=== PATIENT | female | born 1970 | race Caucasian/White ===

== ENCOUNTER 2016-07-22 23:00 | Emergency (ER) | payer BC, OTHER ==
[~2016-07-22 23:00] MED LIST: ACET500CAP PO; BEN25; DEPO-TESTOS200 MG/M1 IM; ENDOMETRIN100 MG V; ESTRACE1 MG PO; FLUCON1 PO; IMPLANON68 MG SC; KLONO5 PO; MULTIPLE VIT PO; NITROBID2 PO; NYS500UDL PO; PRILO PO; PROAIR HFA INH; PROBIOTIC PO; PVC V; QVAR 80 MCG80 MCG INH; QVAR80 MCG IN; SPIRO50 PO; SYMBICORT 160/41 INH INH; TESTOSTERONE INJ; VITAMIN D31000 UNIT PO; VIVELLE-DOT0.1 MG TOP; WELL100 PO; XOPENEX HFA INH; ZANTAC150 MG PO; ZYRTEC ALLGY10 MG; ZYRTEC ALLGY10 MG PO; [UNRECOGNIZED DRUG - OTHER]; [UNRECOGNIZED DRUG - OTHER]; [UNRECOGNIZED DRUG - OTHER] PO
[2016-07-22 23:08] LABS: BASOPHILS 0.3 %; BASOPHILS ABSOLUTE 0.04 10/3/uL (0.0-0.16); EOSINOPHILS 0.5 %; EOSINOPHILS ABSOLUTE 0.06 10/3/uL (0.0-0.53); ER CBC TAT 0 Hrs 07 Mins; HEMATOCRIT 42.4 % (36.0-48.0); HEMOGLOBIN 14.4 g/dL (12.0-16.0); IMMATURE GRANULOCYTES 0.6 %; IMMATURE GRANULOCYTES ABSOLUTE 0.08 10/3/uL (0.0-0.11); LYMPHOCYTES 20.3 %; LYMPHOCYTES ABSOLUTE 2.62 10/3/uL (0.67-4.30); MEAN CORPUSCULAR HEMOGLOB 30.9 pg (26.0-34.0); MEAN PLATELET VOLUME 8.9 fL (9.2-13.0); MONOCYTES 10.7 %; MONOCYTES ABSOLUTE 1.38 10/3/uL (0.21-1.20); NEUTROPHILS 67.6 %; PLATELET COUNT 339 10/3/uL (150-400); RBC DISTRIBUTION WIDTH 13.2 % (12.0-16.0); RED CELL COUNT 4.66 10/6/uL (4.0-5.6); WHITE BLOOD CELLS 12.9 10/3/uL (4.5-10.5)
[2016-07-22 23:13] LABS: MANUAL DIFF NO %
[2016-07-22 23:14] LABS: INTERNATIONAL NORMAL RATI 0.9 UNITS (-); PARTIAL THROMBO TIME 24.1 SEC (22.5-37.2)
[2016-07-22 23:26] LABS: BUN (BLOOD UREA NITROGEN) 12 MG/DL (6-23); CALCIUM, SERUM 9.3 MG/DL (8.5-10.4); CHEST PAIN PROFILE TAT 0 Hrs 25 Mins; CHLORIDE, SERUM 105 MMOL/L (96-112); CREATININE 0.88 MG/DL (0.55-1.02); GFR AFRICAN AMERICAN 92 ML/MIN (>=60); GFR NON AFRICAN AMERICAN 79 ML/MIN (>=60); GLUCOSE, SERUM 87 MG/DL (60-99); POTASSIUM, SERUM 4.2 MMOL/L (3.5-5.3); SODIUM, SERUM 138 MMOL/L (135-148); TROPONIN I <0.02 NG/ML (<0.05)
[2016-07-22 23:28] LABS: CO2 (CARBON DIOXIDE) 31 MMOL/L (24-34)
[2016-07-23 02:02] LABS: ALBUMIN 4.1 G/DL (3.5-5.0); SGOT(AST) 14 U/L (5-40); SGPT(ALT) 23 U/L (5-65); TOTAL BILIRUBIN 0.3 MG/DL (0-1.2); TOTAL PROTEIN 7.9 G/DL (6.0-8.5); TROPONIN I <0.02 NG/ML (<0.05)
[2016-07-23 02:03] LABS: ALKALINE PHOSPHATASE 123 U/L (45-117); DIRECT BILIRUBIN < 0.1 MG/DL (0.0-0.4); INDIRECT BILIRUBIN(NOT ORDER) 0.2 MG/DL (0.1-0.9)
[2016-08-09] MEDS ORDERED: VIVELLE SY0.1 MG/24 TOP (09:02)
[2016-08-09] MEDS ORDERED: CALTRA600D PO (09:04)
[2016-08-09] MEDS ORDERED: FOLIC PO (09:04)
[2016-08-09] MEDS ORDERED: HIZENTRA SQ (09:06)
[2016-08-09] MEDS ORDERED: XOPEN0.5ML INH (09:07)
[2016-08-09] MEDS ORDERED: XYZAL5 MG PO (09:08)
[2016-08-09] MEDS ORDERED: MTX2.5 PO (09:08)
[2016-08-09] MEDS ORDERED: SINGULAIR1 PO (09:09)
[2016-08-09] MEDS ORDERED: NORV25 PO (09:09)
[2016-08-09] MEDS ORDERED: NITROSTAT0.4 MG SL (09:09)
[2016-08-09] MEDS ORDERED: P5 PO (09:10)
[2016-08-09] MEDS ORDERED: ZANTAC150 MG PO (09:11)
[2016-08-09] MEDS ORDERED: ULTRAM50 PO (09:12)
== END 2016-07-23 03:30 | disposition home or self-care (01) ==
LOC: ER 23:00
PROVIDERS: Emergency Medicine; Specialist
DX: R07.9 Chest pain, unspecified (principal); Z90.710 Acquired absence of both cervix and uterus; Z88.5 Allergy status to narcotic agent; Z88.0 Allergy status to penicillin; Z88.2 Allergy status to sulfonamides; Z88.6 Allergy status to analgesic agent; Z88.1 Allergy status to other antibiotic agents; Z88.8 Allergy status to other drugs, medicaments and biological substances; Z79.899 Other long term (current) drug therapy
CPT/HCPCS: 71020; 80048; 80076; 83690; 83735; 84484; 85025; 85379; 85610; 85730; 93005; 93017; 99285; A9270-GY